=== PATIENT | female | born 1970 | race Caucasian/White ===

== ENCOUNTER 2017-05-18 01:19 | Emergency (ER) | payer BC, SELFPAY ==
[~2017-05-18] VITALS: Ht 157.5 cm; Wt 59.0 kg
[~2017-05-18 01:19] MED LIST: HYDACE5 PO; RXHYDACE PO
[2017-05-18] MEDS ORDERED: Veetids 500500 MG PO (04:07)
== END 2017-05-18 04:12 | disposition home or self-care (01) ==
LOC: ER 01:19
DX: J02.0 Streptococcal pharyngitis (principal); F17.210 Nicotine dependence, cigarettes, uncomplicated
CPT/HCPCS: 87430; 99283

== ENCOUNTER 2017-05-19 01:58 | Emergency (ER) | payer BC, SELFPAY ==
[~2017-05-19] VITALS: Ht 162.6 cm; Wt 61.2 kg
[~2017-05-19 01:58] MED LIST changes: +Veetids 500500 MG PO
== END 2017-05-19 02:59 | disposition home or self-care (01) ==
LOC: ER 01:58
DX: J02.0 Streptococcal pharyngitis (principal); F17.210 Nicotine dependence, cigarettes, uncomplicated
CPT/HCPCS: 99282

== ENCOUNTER 2023-12-14 03:34 | Emergency (ER) | payer BC ==
[~2023-12-14] VITALS: Ht 157.5 cm; Wt 68.0 kg
[2023-12-14] MEDS ORDERED: VALA500 PO (06:25)
[2023-12-14] MEDS ORDERED: Lidocaine 4% 1 Patch TOP ONE (06:25)
[2023-12-14] MEDS ORDERED: ValACYClovir HCL 500 MG Tab PO ONE (06:25)
[2023-12-14 06:30] VITALS: BP 118/79
[2023-12-14] MEDS ORDERED: LIDO700A20 TOP (06:31)
[2023-12-14] MEDS ORDERED: GABA300 PO (06:31)
== END 2023-12-14 06:48 | disposition home or self-care (01) ==
LOC: ER 03:34
DX: B02.9 Zoster without complications (principal); R07.89 Other chest pain; F17.210 Nicotine dependence, cigarettes, uncomplicated
CPT/HCPCS: 99282; A9270